=== PATIENT | male | born 1970 | race Two or more races ===

== ENCOUNTER 2018-03-02 03:05 | Emergency (ER) | payer MEDICAID, OTHER ==
[~2018-03-02] VITALS: Ht 190.5 cm; Wt 124.3 kg
[2018-03-02 04:20] LABS: Albumin 3.5 g/dL (3.4-5.0); Anion Gap 9 (5-15); Blood Urea Nitrogen 21 mg/dL (7-18); Calcium 8.1 mg/dL (8.5-10.1); Carbon Dioxide 25 mmol/L (21-32); Chloride 110 mmol/L (98-107); Glucose 135 mg/dL (74-106); Magnesium 2.3 mg/dL (1.6-2.6); Potassium 3.6 mmol/L (3.5-5.1); Sodium 144 mmol/L (136-145)
[2018-03-02 04:20] LABS: Urine Bacteria FEW /hpf (None Seen); Urine Blood Negative /uL (Negative); Urine Specific Gravity 1.019 (1.001-1.035); Urine WBC <1 /hpf (0 - 3)
[2018-03-02 04:21] LABS: Basophils # (auto) 0.1 uL; Basophils % (auto) 0.7 % (0.0-2.0); Eosinophils # (auto) 0.8 uL; Eosinophils % (auto) 8.3 % (0.0-7.0); Hematocrit 42.7 % (41.0-53.0); Hemoglobin 14.7 g/dL (13.5-17.5); Mean Corpuscular Hemoglobin 31.7 pg (28.0-32.0); Mean Corpuscular Hgb Conc. 34.5 g/dL (32.0-36.0); Mean Corpuscular Volume 91.6 fL (80.0-100.0); Monocytes # (auto) 0.6 uL; Monocytes % (auto) 6.1 % (0.0-12.0); Neutrophils # (auto) 4.8 uL; Neutrophils % (auto) 51.9 % (37.0-80.0); Nucleated Red Blood Cells % 0.1 %; Platelet Count (auto) 194 10^3/uL (140-450); Red Blood Cells 4.65 10^6/uL (4.5-5.90); Red Cell Distribution Width 14.1 % (11.8-14.3); White Blood Cell 9.2 10^3/uL (4.4-10.8)
[2018-03-02 04:22] LABS: Alanine Aminotransferase 35 U/L (16-61); Aspartate Aminotransferase 24 U/L (15-37); BUN/Creatinine Ratio 24.4; GFR African American 122 mL/min; GFR Non-African American 101 mL/min
[2018-03-02 04:27] LABS: Alkaline Phosphatase 71 U/L (45-117); Bilirubin, Total 0.3 mg/dL (0.2-1.0); Total Protein 6.8 g/dL (6.4-8.2)
[2018-03-02 06:42] VITALS: BP 135/76
[2018-03-02] MEDS ORDERED: ASPirin 81 mg TAB PO ONE (07:30)
[2018-03-02] MEDS ORDERED: LORazepam 0.5 MG TAB PO ONE (07:30)
== END 2018-03-02 09:13 | disposition home or self-care (01) ==
LOC: ER 03:07
DX: R07.89 Other chest pain (principal); Z90.49 Acquired absence of other specified parts of digestive tract
CPT/HCPCS: 36415; 71045; 80053; 81001; 83735; 84443; 84484; 85025; 93005

== ENCOUNTER 2018-03-27 13:05 | Emergency (ER) | payer MEDICAID ==
[~2018-03-27] VITALS: Ht 190.5 cm; Wt 126.6 kg
[2018-03-27 13:52] VITALS: BP 122/72
[2018-03-27] MEDS ORDERED: KETOROLAC TROMETH 60MG/2ML VIAL IM ONE (15:00)
== END 2018-03-27 16:03 | disposition home or self-care (01) ==
LOC: ER 13:07
DX: M25.551 Pain in right hip (principal); M79.651 Pain in right thigh; Z90.49 Acquired absence of other specified parts of digestive tract
CPT/HCPCS: 73502; 73552; 96372; 99284; J1885